=== PATIENT | female | born 1945 | race Caucasian/White ===

== ENCOUNTER → 2022-04-28 | Outpatient (CLI) | payer MEDICARE, SELFPAY ==
--- NOTE | 2022-04-28 14:50 | CT_ITS ---
CT RIGHT LOWER EXTREMITY WITH 3-D IMAGING CLINICAL INDICATION: PAIN RIGHT KNEE COMPARISON: TECHNIQUE: Axial CT images of the RIGHT lower extremity was performed IV contrast material. Coronal and sagittal reformats were provided. FINDINGS: Bones: Osseous structures are normal without evidence of fracture or dislocation. There is a tiny bone island in the medial femoral condyle.. There are scattered areas of intramedullary lucency within the femoral as well as the tibial shafts without associated cortical destruction demonstrating Hounsfield numbers consistent with nonspecific extensive intramedullary lipomatous deposition. There is narrowing of the medial and lateral compartments of the joint with spurring of the medial and lateral femoral as well as tibial condyles as well as diffuse chondrocalcinosis. There is also narrowing of the lateral compartment of the patellofemoral joint space with spurring of the femur. There are multiple joint mice present which may be on the basis of old trauma or synovial osteochondromatosis. There is a small suprapatellar bursal effusion Soft Tissues: The deep soft tissue structures are unremarkable. The superficial soft tissues are unremarkable without evidence of edema, hematoma, or foreign body. CT/Extremity Lower without Contra IMPRESSION: Advanced degenerative osteoarthritic changes of the right knee. No acute fracture or other significant bony pathology. Electronically Signed: Ralf Rodríguez MD at 17:58 EDT ,
== END | disposition home or self-care (01) ==
PROVIDERS: PCP Family Medicine; Referring Provider Specialist; Visit Provider Specialist
DX: M17.31 Unilateral post-traumatic osteoarthritis, right knee (principal); M25.561 Pain in right knee
CPT/HCPCS: 73700